=== PATIENT | female | born 1970 | race Caucasian/White ===

== ENCOUNTER 2017-03-28 14:54 | Emergency (ER) | payer SELFPAY ==
[~2017-03-28] VITALS: Ht 172.7 cm; Wt 103.9 kg
[2017-03-28 16:58] LABS: BASOPHIL % 0.4 % (0-2); PLATELET COUNT 193 x10^3mcL (130-400); RED CELL DISTRIBUTION WIDTH 13.2 % (11.5-14.5)
[2017-03-28 17:00] LABS: microscopic required? YES; urine erythrocyte 3+ (NEGATIVE)
[2017-03-28 17:16] LABS: CALCIUM 8.6 mg/dL (8.5-10.1); CHLORIDE SERUM 99 mmol/L (98-107); GFR1 > 60 mL/min; GLUCOSE SERUM 114 mg/dL (74-106); POTASSIUM SERUM 3.1 mmol/L (3.5-5.1); SODIUM SERUM 134 mmol/L (136-145)
[2017-03-28 17:21] LABS: ALBUMIN 3.5 g/dL (3.4-5.0); ALKALINE PHOSPHATASE 47 U/L (46-116); ALT/SGPT 34 U/L (14-59); AST/SGOT 24 U/L (15-37); BILIRUBIN TOTAL 0.87 mg/dL (0.20-1.00); TOTAL PROTEIN, SERUM 7.5 g/dL (6.4-8.2)
[2017-03-28 17:49] LABS: CREATINE KINASE 68 U/L (26-192)
[2017-03-28 18:12] LABS: CK-MB < 0.5 ng/mL (0-3.6)
[2017-03-28 18:50] VITALS: BP 104/71
== END 2017-03-28 18:50 | disposition home or self-care (01) ==
LOC: ED 14:54
PROVIDERS: Emergency Medicine
DX: N39.0 Urinary tract infection, site not specified (principal)
CPT/HCPCS: 83880; J0696; J7030; Q0092